=== PATIENT | male | born 1950 | race Caucasian/White ===

== ENCOUNTER 2023-01-11 12:24 | Day surgery (SDC) | payer MEDICARE, OTHER, SELFPAY ==
--- NOTE | 2023-01-10 14:19 | P.CONAN_ITS ---
Documented by User: Margie Lott NP 01/10/23 14:25 HPI - Anesthesia Eval Consult details Narrative: 72yo M for Colonoscopy [facility] Past Medical History Medical History (Updated 01/10/23 @ 14:20 by Margie Lott NP) Gout H. pylori infection (~2009) Inflammatory bowel disease Surgical History Surgical History (Updated 01/10/23 @ 14:22 by Margie Lott NP) H/O hernia repair (~2017) Hx of colonoscopy (~2019) Social History Social History Patient Tobacco Use Status: Former Tobacco user Quit Date: Use of substances other than those prescribed or required for medical reasons: No Are you DNR?: No Advance Directives: No Advance Directives Information Provided: Yes Meds Allergies Allergy/AdvReac Type Severity Reaction Status Date / Time Penicillins Allergy Unknown Unknown Verified 01/10/23 14:21 Home Medications Medication Instructions Recorded Confirmed Last Taken Type Glucosamine 01/10/23 Unknown History Vitamin D3 01/10/23 Unknown History dicyclomine 20 mg tablet 1 tab PO TID 01/10/23 01/10/23 Unknown History digestive enzymes 01/10/23 Unknown History multivitamin 01/10/23 Unknown History Exam Exam Date and Time: January 10, 2023 1419 Assessment and Plan Assessment Anesthesia Assessment: Chart Reviewed Documented by User: Naima Castillo MD 01/11/23 14:13 HPI - Anesthesia Eval Consult details Narrative: 72yo M for Colonoscopy ho polyps screening [facility] Past Medical History Medical History (Updated 01/10/23 @ 14:20 by Margie Lott NP) Gout H. pylori infection (~2009) Inflammatory bowel disease Family History Family history of problems with anesthesia: No Surgical History Surgical History (Updated 01/10/23 @ 14:22 by Margie Lott NP) H/O hernia repair (~2018) Hx of colonoscopy (~2019) History of Problems with Anesthesia: No Social History Social History Patient Tobacco Use Status: Former Tobacco user Quit Date: 1980's Use of substances other than those prescribed or required for medical reasons: No Are you DNR?: No Advance Directives: No Advance Directives Information Provided: Yes Meds Allergies Allergy/AdvReac Type Severity Reaction Status Date / Time Penicillins Allergy Unknown Unknown Verified 01/10/23 14:21 Home Medications Medication Instructions Recorded Confirmed Last Taken Type Glucosamine 01/10/23 Unknown History Vitamin D3 01/10/23 Unknown History dicyclomine 20 mg tablet 1 tab PO TID 01/10/23 01/10/23 Unknown History digestive enzymes 01/10/23 Unknown History multivitamin 01/10/23 Unknown History Exam Airway Mallampati Class: II TM Dist: >3cm Neck ROM: Full Heart: rr Lungs: cta Assessment and Plan Assessment Anesthesia Assessment: Anesthesia Plan Discussed Final Anesthetic Review Family History of Problems with Anesthesia: No History of Problems with Anesthesia: No NPO: Yes ASA Class: II Final Preanesthetic Review: No Changes in Pt Med Stat, Meds/Allgs Chart Reviewed, Consent Obtained/Reviewed and Anes Risks/Benef Reviewed Patient Risk: Low Procedure Risk: Low Anesthetic Plan Anesthetic Plan: MAC: Disposition: Standard PACU
[2023-01-11 13:16] VITALS: BMI 20.4
[2023-01-11 13:28] VITALS: BMI 20.5
--- NOTE | 2023-01-11 13:28 | MHC.SHP ---
Pre-Procedural Eval Section A Date of Service: 01/11/23 The patient is an INPATIENT: No Changes since office visit: No Cold of Flu in the past 2 weeks, No New Medical Problems, No Changes in Medication and No Patient answered all questions The History & Physical has been completed within 30 days and I have reviewed it.: Yes Section B Chief Complaint: screening Allergies: Allergies Allergy/AdvReac Type Severity Reaction Status Date / Time Penicillins Allergy Unknown Unknown Verified 01/10/23 14:21 Plan I have reviewed the history and physical and performed a pertinent physical examination on my patient. No changes have occurred unless specified. Time Spent With Patient Time: Total time managing care of this patient today ____ minutes.
[2023-01-11 13:33] VITALS: BP 109/74; PULSE 95; RESP 18; TEMP 36.9; O2SAT 98
[2023-01-11] MEDS: Lactated Ringers 1,000 ML 100 ML IVCONT (13:47)
--- NOTE | 2023-01-11 14:25 | P.BOP_ITS ---
Brief Operative Note Date of Service: 01/11/23 Pre-op diagnosis: screening Post-op diagnosis: same Procedure: colonoscopy Surgeon: Mervin García Anesthesia: MAC Was an Marine [employer] Consultant used for this Procedure?: No Estimated blood loss (mL): 5 Pathology: other Condition: stable Disposition: PACU
[2023-01-11 14:29] VITALS: BP 86/56; PULSE 78; RESP 18; TEMP 36.4; O2SAT 97
[2023-01-11 14:34] VITALS: BP 79/50
[2023-01-11 14:39] VITALS: BP 93/63
[2023-01-11 14:44] VITALS: BP 104/60; PULSE 74; RESP 16; TEMP 36.6; O2SAT 98
--- NOTE | 2023-01-12 00:54 | OP_ITS ---
DATE OF SERVICE: 01/11/2023 SURGEON: Mervin García MD INDICATIONS: Colon cancer screening. PREOPERATIVE DIAGNOSIS: POSTOPERATIVE DIAGNOSIS: PROCEDURE PERFORMED: Colonoscopy to the cecum with biopsy. ESTIMATED BLOOD LOSS: COMPLICATIONS: ANESTHESIA: Medications; monitored anesthesia care. ASSISTANTS: SPECIMENS: PROCEDURE DESCRIPTION: Date: 01/11/2023. A history and physical performed. The risks and benefits of the procedure were explained to the patient. Informed consent was obtained. The patient was placed in the left lateral decubitus position. A digital rectal exam was performed and was found to be normal. The Olympus pediatric videocolonoscope was introduced into the rectum and advanced to the cecum without difficulty. The cecum was identified by transillumination, palpation, and identification of ileocecal valve. Examination was performed. The scope was removed. He tolerated the procedure well and was returned to recovery room in stable condition. FINDINGS: There was no evidence of Crohn disease. 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 Biopsies were obtained from the cecum and the vicinity of the appendiceal orifice also from the right colon, left colon, and rectum. Retroflexed examination showed moderate-sized internal hemorrhoids. There was liquid and some of formed stool limiting sensitivity examination for detection of small polyps. This was washed and suctioned. The terminal ileum was not evaluated. There was moderate diverticulosis throughout the colon. IMPRESSION: Normal colonoscopy. RECOMMENDATIONS: Follow up the biopsy results. Repeat colonoscopy in 10 years is optional based on age. MD TAQUERIA Osman/JERMAN / [id number] [email or web address]
== END 2023-01-11 16:08 | disposition home or self-care (01) ==
PROVIDERS: PCP Internal Medicine; Visit Provider Internal Medicine Gastroenterology
PROC: 0DJD8ZZ Inspection of Lower Intestinal Tract, Via Natural or Artificial Opening Endoscopic (ICD-10-PCS; CPT 45378; principal; 2023-01-11 13:30)
DX: Z12.11 Encounter for screening for malignant neoplasm of colon (principal); Z86.010 Personal history of colon polyps; K63.89 Other specified diseases of intestine; K58.0 Irritable bowel syndrome with diarrhea; Z86.19 Personal history of other infectious and parasitic diseases; M10.9 Gout, unspecified; Z79.899 Other long term (current) drug therapy; Z88.0 Allergy status to penicillin
CPT/HCPCS: 45380; 88305